=== PATIENT | male | born 1960 | race Caucasian/White ===

== ENCOUNTER 2016-12-07 14:41 | Emergency (ER) | payer BC ==
[~2016-12-07] VITALS: Ht 172.7 cm; Wt 95.0 kg
[~2016-12-07 14:41] MED LIST: IOHEXOL-300 100 ML BOTTLE ONE; SODIUM CHLORIDE 0.9% 10ML VIAL ONE
[2016-12-07] MEDS ORDERED: HYDROCODONE/ACETAMINOPHEN 5/325MG TABLET PO ONE (17:30)
[2016-12-07] MEDS ORDERED: KETOROLAC 60MG/2ML VIAL IM ONE (17:30)
[2016-12-07 18:36] LABS: BASOPHILS % 0.2 % (0.0-2.0); EOSINOPHILS % 0.2 % (0.0-5.0); HEMATOCRIT. 45.6 % (42.0-52.0); HEMOGLOBIN. 15.7 g/dL (14.0-18.0); LYMPHOCYTES % 8.4 % (20.0-50.0); MEAN CORPUSCULAR HEMOGLOBIN 30.7 pg (28.0-32.0); MEAN CORPUSCULAR VOLUME 89.1 fL (80.0-94.0); MONOCYTES % 6.6 % (2.0-8.0); NEUTROPHILS % 84.6 % (40.0-76.0); PLATELET 254 x1000/uL (130-400); RED BLOOD CELL COUNT 5.12 mill/uL (4.7-6.1); RED CELL DISTRIBUTION WIDTH 13.6 % (11.6-14.6)
[2016-12-07 18:40] LABS: CHLORIDE 106 mEq/L (98-107)
[2016-12-07 18:44] LABS: INR 1.1; PROTHROMBIN TIME 11.1 sec (9.4-11.6)
[2016-12-07 18:45] LABS: CARBON DIOXIDE 25 mEq/L (21-32)
[2016-12-07 18:49] LABS: TROPONIN I < 0.02 ng/mL (0.00-0.04)
[2016-12-07 20:55] VITALS: BP 141/90
== END 2016-12-07 20:55 | disposition home or self-care (01) ==
LOC: ER 15:38
DX: M54.2 Cervicalgia (principal); R10.9 Unspecified abdominal pain; R07.9 Chest pain, unspecified
CPT/HCPCS: 36415; 71020; 71260; 72100; 74177; 80053; 84484; 85025; 85610; 93005; 96372; 99285; A4216; J1885; Q9967; Z7610; L0172